=== PATIENT | female | born 1955 | race Caucasian/White ===

== ENCOUNTER 2021-03-10 13:00 | Outpatient (CLI) | payer BC, OTHER ==
[2021-03-10] MEDS ORDERED: IOHEXOL-350 100 ML VIAL IV ONE (16:09)
[2021-03-10] MEDS ORDERED: METOPROLOL TARTRATE INJ 5 MG/5 ML AMPUL ONE ×2 (16:10→16:32)
[2021-03-10] MEDS ORDERED: CT SWABBABLE VALVE TRANS SET 1 EA INFUS.SET MC ONE (16:10)
[2021-03-10] MEDS ORDERED: NITROGLYCERIN 0.4 MG/TAB BOTTLE ONE (16:10)
[2021-03-10] MEDS ORDERED: IV NS 0.9% 250 ML IV ONE (16:10)
== END 2021-03-10 23:59 | disposition home or self-care (01) ==
LOC: XR 13:00
PROVIDERS: ATTEND Internal Medicine Interventional Cardiology
DX: R07.9 Chest pain, unspecified (principal)
CPT/HCPCS: 75574; J3490 ×2; J7050; Q9967